=== PATIENT | female | born 1995 | race Caucasian/White ===

== ENCOUNTER 2017-04-21 17:44 | Emergency (ER) | payer OTHER ==
[~2017-04-21] VITALS: Wt 90.0 kg
[2017-04-21] MEDS ORDERED: KETOROLAC 60 MG INJ IM STA (18:52)
[2017-04-21 19:11] VITALS: PULSE 68; RESP 18
[2017-04-21] MEDS ORDERED: NICARDipine HCL 30 MG CAPSULE PO ONE (19:30)
--- NOTE | 2017-04-21 19:38 | RADRPT ---
PROCEDURE: Chest x-ray CLINICAL INDICATION: CHEST PAIN TECHNIQUE: Two views PA and lateral COMPARISON: none FINDINGS: The cardiomediastinal silhouette is normal in size. Pulmonary vasculature is within normal limits. Lung munson are clear, without focal consolidation or mass. There is no evidence of pleural effusion. There is no pneumothorax. Osseous structures appear unremarkable. IMPRESSION: 1. No evidence of acute cardiopulmonary disease. Unremarkable examination. RPTAT: HBST .Tank Willis MD, MD Date Time Electronically viewed and signed by .Tank Willis MD, on 04/21/2017 19:38 .T/
[2017-04-21 19:47] LABS: BASOPHILS % 0.4 % (0.0-2.0); EOSINOPHILS # 0.1 10^3/ul (0.0-0.5); EOSINOPHILS % 1.2 % (0.0-7.0); HEMATOCRIT 38.4 % (37.0-47.0); LYMPHOCYTES # 3.1 10^3/ul (0.8-2.9); MEAN CORPUSCULAR HEMOGLOBIN 30.6 pg (29.0-33.0); MEAN CORPUSCULAR HGB CONC 36.5 g/dl (32.0-37.0); MEAN PLATELET VOLUME 10.1 fl (7.4-10.4); MONOCYTE # 0.5 10^3/ul (0.3-0.9); MONOCYTES % 5.1 % (0.0-11.0); NEUTROPHIL # 5.6 10^3/ul (1.6-7.5); PLATELET COUNT 206 10^3/UL (140-415); RED BLOOD COUNT 4.57 10^6/ul (4.20-5.40); RED CELL DISTRIBUTION WIDTH 12.1 % (11.5-14.5); WHITE BLOOD COUNT 9.3 10^3/ul (4.8-10.8)
[2017-04-21 19:52] LABS: ADD UMIC YES; UR ASCORBIC ACID 40 mg/dL (NEGATIVE); UR BILIRUBIN (Dip) NEGATIVE (NEGATIVE); UR BLOOD (Dip) 1+ mg/dL (NEGATIVE); UR CLARITY CLEAR (CLEAR); UR COLOR YELLOW (YELLOW); UR GLUCOSE (Dip) NEGATIVE (NEGATIVE); UR KETONES (Dip) 1+ mg/dL (NEGATIVE); UR LEUKOCYTE ESTERASE (Dip) NEGATIVE Leu/ul (NEGATIVE); UR MUCUS FEW /HPF (NONE SEEN); UR NITRITE (Dip) NEGATIVE (NEGATIVE); UR RBC 24 /HPF (0-5); UR SPECIFIC GRAVITY (Dip) 1.019 (1.003-1.030); UR SQUAMOUS EPITHELIAL CELL FEW /HPF (FEW); UR TOTAL PROTEIN (Dip) 1+ mg/dl (NEGATIVE); UR UROBILINOGEN (Dip) NEGATIVE (NEGATIVE)
[2017-04-21 20:04] LABS: PROTIME 13.2 Sec (12.2-14.2)
[2017-04-21 20:05] LABS: PARTIAL THROMBOPLASTIN TIME 29.6 Sec (25.0-35.0)
[2017-04-21 20:07] LABS: ALANINE AMINOTRANSFERASE 53 IU/L (13-69); ALBUMIN/GLOBULIN RATIO 1.42; ALKALINE PHOSPHATASE 66 IU/L (42-121); ANION GAP 22 (8-16); ASPARTATE AMINO TRANSFERASE 32 IU/L (15-46); BILIRUBIN,INDIRECT 0.9 mg/dl (0-1.1); BILIRUBIN,TOTAL 0.9 mg/dl (0.2-1.3); BLOOD UREA NITROGEN 12 mg/dl (7-20); CALCIUM 9.7 mg/dl (8.4-10.2); CARBON DIOXIDE 27 mmol/L (21-31); CHLORIDE 101 mmol/L (97-110); CREATININE 0.61 mg/dl (0.44-1.00); D-DIMER 295.58 ng/ml (<460); GLUCOSE 90 mg/dl (70-220); POTASSIUM 3.5 mmol/L (3.5-5.1); SODIUM 146 mmol/L (135-144); TOTAL PROTEIN 8.5 g/dl (6.1-8.1)
[2017-04-21 20:18] LABS: B-TYPE NATRIURETIC PEPTIDE 28 PG/ML (0-125)
[2017-04-21 20:24] LABS: TROPONIN-I < 0.012 ng/ml (0.00-0.12)
--- NOTE | 2017-04-21 20:34 | ERD ---
ER Documentation Chief Complaint Date/Time DATE: 04/21/17 Chief Complaint Chest pain, Back pain HPI The patient is a 21-year-old female who presents to the Emergency Department with complaint of chest pain. The patient reports that her symptoms began two days ago, with onset of central chest pain radiating to the upper back. She describes her pain as sharp in nature, radiating towards the trapezius and upper back. She admits to increased discomfort with movement of the extremities and upon taking deep breaths. The pain is improved while at rest, and upon sitting up/leaning forward rather than lying supine. The patient admits to recent illness, with cough and rhinorrhea approximately 2 weeks ago, which have since resolved. She denies any current cough or URI symptoms. Denies any orthopnea or paroxysmal nocturnal dyspnea. Denies any calf swelling, calf tenderness or lower extremity edema. Denies any trauma or injury to the chest or back. The patient denies any exacerbation of her symptoms with physical exertion, but admits to some exacerbation with range of motion of the upper extremities. Denies fevers, sweats, chills. Denies any hoarseness of change in phonation. Denies new rashes or vesicles to the affected area. Denies nausea, vomiting or change in appetite. Denies any change in symptoms with food. Denies recent travel or recent surgeries. Denies any OCP or exogenous estrogen use. Denies any history of malignancy or autoimmune disease. Denies any history of PE or DVTs. Patient also denies any long car rides, long flights, prolonged periods of immobilization, leg swelling, hemoptysis, recent pregnancies, current or prolonged bedrest. Of note, upon arrival to the ED, the patient's blood pressure was measured to be 244/128 (confirmed x 3). Patient notes that in the past she has been informed "once or twice" that her blood pressure was elevated. When inquired on the previous blood pressure values, patient notes that her most elevated previous blood pressure was "160" systolic. She notes that both of her parents have hypertension, and believes that to be the cause of her elevated blood pressure. Otherwise, she denies any previous diagnosis of hypertension, hyperlipidemia, diabetes mellitus. She denies any head trauma, headache, dizziness, weakness, illicit drug use, visual changes, altered mental status, confusion, focal neurologic symptoms. Denies any tobacco use. Denies any familial cardiac history, or history of [place] in parents, aunts, uncles, grandparents or siblings. Denies history of CHF, COPD, asthma, CAD. ROS All systems reviewed and are negative except as per history of present illness. Medications Home Meds Active Scripts Amlodipine Besylate* (Norvasc*) 10 Mg Tablet, 10 MG PO DAILY, #30 TAB Prov:PATTI GALO VERNON 04/21/17 Lisinopril* (Lisinopril*) 20 Mg Tablet, 20 MG PO DAILY, #30 TAB Prov:PATTI GALO VERNON 04/21/17 Naproxen* (Naprosyn*) 500 Mg Tablet, 500 MG PO BID Y for PAIN AND/OR INFLAMMATION, #30 TAB Prov:PATTI GALO VERNON 04/21/17 Allergies Allergies: Coded Allergies: No Known Allergy (Unverified , 01/19/15) PMhx/Soc History of Surgery: No Anesthesia Reaction: No Hx Neurological Disorder: No Hx Respiratory Disorders: No Hx Cardiac Disorders: Yes (HTN) Hx Psychiatric Problems: No Hx Miscellaneous Medical Probl: Yes () Hx Alcohol Use: No Hx Substance Use: No Hx Tobacco Use: No Smoking Status: Never smoker Physical Exam Vitals Vital Signs Date Time Temp Pulse Resp B/P Pulse Ox O2 Delivery O2 Flow Rate FiO2 04/21/17 20:38 177/101 04/21/17 19:11 68 18 220/122 98 Room Air 04/21/17 17:47 98.0 83 18 244/128 99 Physical Exam GENERAL: Well-developed, well-nourished, in no acute distress. Nontoxic. Well- appearing. HEENT: Head is normocephalic, atraumatic. No scleral pallor or icterus. Pupils equal, round and reactive to light. Conjunctiva pink. Moist mucous membranes. NECK: Supple. No masses, no tenderness, no lymphadenopathy. Trachea midline. No nuchal rigidity. Full range of motion. No distended neck veins. RESPIRATORY: Lungs are clear to auscultation bilaterally. No rales, rhonchi or wheezing. Equal breath sounds. Normal expiratory effort. No accessory muscle use. CARDIOVASCULAR: Regular rate and rhythm. S1 and S2 normal. No murmurs or gallops. No S3 or S4. No muffled heart sounds. Distal pulses are palpable, 2+ bilaterally. Capillary refill is less than 2 seconds. CHEST WALL: No flail chest. No deformity. No tenderness to palpation. No crepitus. No subcutaneous emphysema. GASTROINTESTINAL: Abdomen is soft, nontender, and nondistended. No guarding, no rebound tenderness. Normal bowel sounds. No ascites. FLANK: No CVA tenderness, no mass or swelling. BACK: No midline tenderness. No paraspinal tenderness. EXTREMITIES: No clubbing, cyanosis, or edema. Normal skin perfusion. Full range of motion of both the upper and lower extremities bilaterally. Muscle tone is normal. No focal swelling or erythema. No calf swelling or calf tenderness. Negative Bernardo's sign. No lower extremity edema. NEUROLOGIC: The patient is alert, awake, and oriented x 3. No focal neurologic deficits. Cranial nerves are grossly intact. Gait is observed and normal. There is no ataxia. Motor normal in all extremities. Sensation grossly intact. Speech is normal. INTEGUMENT: Skin is clean, dry and intact. No rashes, lesions or petechiae present. PSYCHIATRIC: Appropriate; Cooperative. Result Diagram: 04/21/17193904/21/171939 Results 24 hrs Laboratory Tests Test 04/21/17 19:40 White Blood Count 9.310^3/ul Red Blood Count 4.5710^6/ul Hemoglobin 14.0g/dl Hematocrit 38.4% Mean Corpuscular Volume 84.0fl Mean Corpuscular Hemoglobin 30.6pg Mean Corpuscular Hemoglobin Concent 36.5g/dl Red Cell Distribution Width 12.1% Platelet Count 95673^3/UL Mean Platelet Volume 10.1fl Neutrophils % 60.0% Lymphocytes % 33.0% Monocytes % 5.1% Eosinophils % 1.2% Basophils % 0.4% Nucleated Red Blood Cells % 0.0/100WBC Neutrophils # 5.610^3/ul Lymphocytes # 3.110^3/ul Monocytes # 0.510^3/ul Eosinophils # 0.110^3/ul Basophils # 0.010^3/ul Nucleated Red Blood Cells # 0.010^3/ul Prothrombin Time 13.2Sec Prothrombin Time Ratio 1.0 INR International Normalized Ratio 1.00 Activated Partial Thromboplast Time 29.6Sec D-Dimer 295.58ng/ml D-Dimer Comment Urine Color YELLOW Urine Clarity CLEAR Urine pH 5.0 Urine Specific [place] 1.019 Urine Ketones 1+mg/dL Urine Nitrite NEGATIVEmg/dL Urine Bilirubin NEGATIVEmg/dL Urine Urobilinogen NEGATIVEmg/dL Urine Leukocyte Esterase NEGATIVELeu/ul Urine Microscopic RBC 24/HPF Urine Microscopic WBC 3/HPF Urine Squamous Epithelial Cells FEW/HPF Urine Mucus FEW/HPF Urine Hemoglobin 1+mg/dL Urine Glucose NEGATIVEmg/dL Urine Total Protein 1+mg/dl Sodium Level 146mmol/L Potassium Level 3.5mmol/L Chloride Level 101mmol/L Carbon Dioxide Level 27mmol/L Anion Gap 22 Blood Urea Nitrogen 12mg/dl Creatinine 0.61mg/dl Glucose Level 90mg/dl Calcium Level 9.7mg/dl Total Bilirubin 0.9mg/dl Direct Bilirubin 0.00mg/dl Indirect Bilirubin 0.9mg/dl Aspartate Amino Transf (AST/SGOT) 32IU/L Alanine Aminotransferase (ALT/SGPT) 53IU/L Alkaline Phosphatase 66IU/L Troponin I < 0.012ng/ml B-Type Natriuretic Peptide 28PG/ML Total Protein 8.5g/dl Albumin 5.0g/dl Globulin 3.50g/dl Albumin/Globulin Ratio 1.42 Lipase 75U/L Serum HCG, Qualitative NEGATIVE Current Medications Medications (Trade) Dose Ordered Sig/Saira Route PRN Reason Start Time Stop Time Status Last Admin Dose Admin Ketorolac Tromethamine (Toradol) 60 mg ONCE STAT IM 04/21/17 18:52 04/21/17 18:55 DC 04/21/17 19:39 Nicardipine HCl (Cardene) 30 mg ONCE ONCE PO 04/21/17 19:30 04/21/17 19:31 DC 04/21/17 19:43 Procedures/MDM DIAGNOSTIC TESTS AND INTERPRETATION: PROCEDURE: Chest x-ray CLINICAL INDICATION: CHEST PAIN TECHNIQUE: Two views PA and lateral COMPARISON: none FINDINGS: The cardiomediastinal silhouette is normal in size. Pulmonary vasculature is within normal limits. Lung munson are clear, without focal consolidation or mass. There is no evidence of pleural effusion. There is no pneumothorax. Osseous structures appear unremarkable. IMPRESSION: 1. No evidence of acute cardiopulmonary disease. Unremarkable examination. .Tank Willis MD, Date Time Electronically viewed and signed by .Tank Willis MD, MD on 04/21/2017 19:38 EKG Reviewed and interpreted by: Dr. Schuler EKG Interpretation: Normal sinus rhythm. Rate [address]-segment elevations. No ectopy. Normal axis. EMERGENCY DEPARTMENT COURSE: Laboratory work, EKG and chest x-ray performed. Patient's blood pressure was elevated (>120/80) but she appears to be stable without evidence of end-organ damage or hypertensive emergency. The patient was counseled about the risks of hypertension and strongly urged to pursue outpatient monitoring and therapy within a week (or as soon as possible) with their primary care physician. Patient was given a dose of Cardene in the ED with improvement of initial blood pressure. Risks of uncontrolled elevated blood pressure discussed at length. The patient's case was reviewed and discussed with Dr. Schuler, ED attending/supervising physician, who reviewed patient's results and agrees with administration of the Nicardipine PO. Additionally, he recommends that the patient be discharged home with a prescription for Lisinopril 20 mg and Norvasc 10 mg to be taken daily until she follows up with her primary medical provider this week. The patient gave informed consent to the new medications. She was fully informed by myself on the adverse effects and adverse drug interactions in order to provide adequate safeguards to prevent possible adverse reactions to medications. Patient was also given Toradol upon arrival to the ED. On reevaluation, she reports improvement in symptoms. HEART Score: 2 points. Risk of MACE of 0.9 - 1.7% MEDICAL DECISION MAKING: This is a 21-year-old female presenting to the Emergency Department with chest pain radiating to the back. The patient had no significant abnormalities noted on physical examination. Vital signs revealed severe new-onset hypertension, with blood pressure of 244/128. Patient has been informed previously of "elevated blood pressure," but never formally diagnosed or treated. Otherwise, she was afebrile with no tachycardia, no tachypnea and a normal O2 saturation on room air. The differential diagnosis includes, but is not limited to, gastritis, trauma, pneumothorax, dysrhythmia, hypertrophic cardiomyopathy, pericarditis, Prinzmetal's angina, myocardial infarction, mitral valve prolapse, peptic ulcer disease, pancreatitis, cholecystitis, empyema, pneumonia, GERD, pleurisy, costochondritis, endocarditis, musculoskeletal pain, acute coronary syndrome, pulmonary embolism, aortic dissection, CHF, malignant hypertension, hypertensive crisis, esophageal perforation, myocarditis, tamponade. The clinical presentation does not suggest an acute coronary syndrome or acute pulmonary embolism. Labs: CBC reveals no leukocytosis. Hemoglobin and hematocrit are stable, no significant anemia noted. Electrolytes within normal limits, no indication for electrolyte replacement. BUN and creatinine normal, no evidence of pre-renal azotemia or acute kidney injury. Troponin < 0.012, greater than 6 hours after chest pain began making NSTEMI unlikely. Unstable angina unlikely on history/physical exam. Pulmonary embolism unlikely given risk factor profile and very atypical presentation. D-dimer negative. Aortic dissection unlikely given equal pulses and no tearing pain. Esophageal perforation unlikely: no retching or recent instrumentation. No evidence of pneumothorax on CXR, and patient has normal O2 saturation of 99%, and no signs of respiratory distress. After rest and administration of Toradol, patient's symptoms greatly improved. Cardene was administered in the ED, and patient's blood pressure improved. Upon review and interpretation of the patient's presentation and overall ER course, I believe patient's symptoms are most consistent with chest pain and uncontrolled hypertension. Question possible underlying pericarditis, though no findings on EKG, no friction rub. At this time, the patient is in stable condition with no current evidence of end-organ damage and therefore she can be discharged home with prescriptions for Naproxen, Lisinopril and Norvasc and given strict return precautions or signs of deteriorating or worsening condition. She is strongly advised to follow up with his primary care provider within 1-2 days for reevaluation and further management, or return to the ER sooner if symptoms worsen. If symptoms return or worsen, patient should also consider outpatient cardiology evaluation. I shared my medical decision making and plan with the patient at length and in great detail, and she verbally understands and agrees with the plan for further observation and care as an outpatient. At the time of discharge, all questions were answered. Departure Diagnosis: Primary Impression: Chest pain Chest pain type: unspecified Qualified Code: R07.9 - Chest pain, unspecified type Additional Impression: Uncontrolled hypertension Condition: Stable Patient Instructions: Chest Pain, Uncertain Cause Additional Instructions: Follow up with your primary medical provider in 1-2 days for reevaluation and further management. If symptoms persist or worsen, please follow up with cardiology as well. Return to the ED sooner for any new or worsening symptoms. PATTI GALO PA-C Apr 21, 2017 20:34
[2017-04-21] MEDS ORDERED: NAPR-260 PO (20:37)
[2017-04-21 20:38] VITALS: BP 177/101
[2017-04-21] MEDS ORDERED: AMLO-218 PO (20:46)
[2017-04-21] MEDS ORDERED: LISI20TA11 PO (20:46)
== END 2017-04-21 20:59 | disposition home or self-care (01) ==
LOC: FTE 17:44
DX: R07.9 Chest pain, unspecified (principal); I10 Essential (primary) hypertension; R06.02 Shortness of breath
CPT/HCPCS: 36415; 71020; 80053; 81001; 83690; 83880; 84484; 84703; 85025; 85378; 85610; 85730; 96372; J1885; Z7502; Z7610; 93005

== ENCOUNTER 2018-09-06 04:13 | Emergency (ER) | END 2018-09-06 06:18 | disposition home or self-care (01) ==

== ENCOUNTER 2019-03-28 11:42 | Emergency (ER) | payer OTHER ==
[~2019-03-28] VITALS: Ht 175.3 cm; Wt 103.5 kg
[~2019-03-28 11:42] MED LIST: ACET500C5 PO; AMLO-147 PO; AZIT250T PO; LISI-471 PO; RANI150T35 PO
[2019-03-28 12:01] VITALS: Ht 175.3 cm; Wt 103.5 kg
[2019-03-28] MEDS ORDERED: KETOROLAC 30 MG INJ IM STA (12:14)
--- NOTE | 2019-03-28 12:25 | ERD ---
ER Documentation Chief Complaint Chief Complaint back pain started today HPI Patient is a 23 years old female with PMHx of HTN presenting to the clinic for left upper mid back pain that started earlier today. Patient states that the pain came about suddenly and rates it 8/10. Patient denies using any OTC medication and denies fever, chills, night sweats, nausea, emesis, abdominal pain, diarrhea, urinary symptoms, or flank pain. ROS All systems reviewed and are negative except as per history of present illness. Medications Home Meds Active Scripts Ibuprofen* (Motrin*) 800 Mg Tab, 800 MG PO Q6, #30 TAB Prov:CARLEEN LOPEZ PA-C 03/28/19 Methocarbamol* (Robaxin*) 500 Mg Tab, 500 MG PO Q8 for 7 Days, #21 TAB Prov:CARLEEN LOPEZ PA-C 03/28/19 Acetaminophen* (Tylophen*) 500 Mg Capsule, 2 CAP PO Q8H PRN for PAIN AND OR ELEVATED TEMP, #20 CAP Prov:TADEO WILDE MD 09/06/18 Ranitidine Hcl* (Zantac*) 150 Mg Tablet, 150 MG PO DAILY PRN for SORE THROAT, #30 TAB Prov:TADEO WILDE MD 09/06/18 Azithromycin* (Zithromax*) 250 Mg Tablet, 250 MG PO .ZPACK DIRECTED, #6 TAB TAKE 500 MG (2 TABS) THE FIRST DAY THEN 250 MG (1 TAB) DAYS 2-5 Prov:TADEO WILDE MD 09/06/18 Lisinopril* (Lisinopril*) 20 Mg Tablet, 20 MG PO DAILY, #30 TAB Prov:TADEO WILDE MD 09/06/18 Amlodipine Besylate* (Amlodipine Besylate*) 10 Mg Tablet, 10 MG PO DAILY, #30 TAB Prov:TADEO WILDE MD 09/06/18 Allergies Allergies: Coded Allergies: No Known Allergy (Unverified , 03/28/19) PMhx/Soc History of Surgery: Yes (C/S) Anesthesia Reaction: No Hx Neurological Disorder: No Hx Respiratory Disorders: No Hx Cardiac Disorders: Yes (HTN) Hx Psychiatric Problems: No Hx Miscellaneous Medical Probl: Yes () Hx Alcohol Use: No Hx Substance Use: No Hx Tobacco Use: No Smoking Status: Never smoker FmHx Family History: No diabetes, No coronary disease, No other Physical Exam Vitals Vital Signs Date Temp Pulse Resp B/P (MAP) Pulse Ox O2 O2 Flow FiO2 Time Delivery Rate 03/28/19 98.3 91 24 184/116 98 12:01 (138) Physical Exam Const: No acute distress Head: Atraumatic Eyes: Normal Conjunctiva. PERRLA. No nystagmus. Resp: Clear to auscultation bilaterally Cardio: Regular rate and rhythm, no murmurs Abd: Soft, non tender, non distended. Normal bowel sounds Skin: No petechiae or rashes Back: No midline or flank tenderness. Negative CVAT Ext: No cyanosis, or edema Neur: Awake and alert Psych: Normal Mood and Affect Result Diagram: 03/28/19 1231 03/28/19 1231 Results 24 hrs Laboratory Tests Test 03/28/19 12:22 03/28/19 12:28 03/28/19 12:31 Urine Color YELLOW Urine Clarity CLEAR Urine pH 6.0 Urine Specific [place] 1.014 Urine Ketones NEGATIVE mg/dL Urine Nitrite NEGATIVE mg/dL Urine Bilirubin NEGATIVE mg/dL Urine Urobilinogen NEGATIVE mg/dL Urine Leukocyte Esterase NEGATIVE Jona/ul Urine Microscopic RBC 3 /HPF Urine Microscopic WBC 0 /HPF Urine Squamous Epithelial Cells FEW /HPF Urine Hemoglobin 1+ mg/dL Urine Glucose NEGATIVE mg/dL Urine Total Protein 1+ mg/dl POC Beta HCG, Qualitative NEGATIVE White Blood Count 6.0 10^3/ul Red Blood Count 5.18 10^6/ul Hemoglobin 12.4 g/dl Hematocrit 38.5 % Mean Corpuscular Volume 74.3 fl Mean Corpuscular Hemoglobin 23.9 pg Mean Corpuscular 32.2 g/dl Hemoglobin Concent Red Cell Distribution Width 15.1 % Platelet Count 227 10^3/UL Mean Platelet Volume 10.9 fl Immature Granulocytes % 0.300 % Neutrophils % 61.5 % Lymphocytes % 31.7 % Monocytes % 5.0 % Eosinophils % 0.8 % Basophils % 0.7 % Nucleated Red Blood Cells % 0.0 /100WBC Immature Granulocytes # 0.020 10^3/ul Neutrophils # 3.7 10^3/ul Lymphocytes # 1.9 10^3/ul Monocytes # 0.3 10^3/ul Eosinophils # 0.1 10^3/ul Basophils # 0.0 10^3/ul Nucleated Red Blood Cells # 0.0 10^3/ul Sodium Level 141 mmol/L Potassium Level 4.0 mmol/L Chloride Level 107 mmol/L Carbon Dioxide Level 22 mmol/L Anion Gap 12 Blood Urea Nitrogen 12 mg/dl Creatinine 0.54 mg/dl Est Glomerular Filtrat > 60 mL/min Rate mL/min Glucose Level 97 mg/dl Calcium Level 9.1 mg/dl Total Bilirubin 0.6 mg/dl Direct Bilirubin 0.00 mg/dl Indirect Bilirubin 0.6 mg/dl Aspartate Amino 16 IU/L Transf (AST/SGOT) Alanine 18 IU/L Aminotransferase (ALT/SGPT) Alkaline Phosphatase 53 IU/L Total Protein 8.5 g/dl Albumin 4.8 g/dl Globulin 3.70 g/dl Albumin/Globulin Ratio 1.29 Current Medications Medications Dose Sig/Saira Start Time Status Last (Trade) Ordered Route PRN Stop Time Admin Dose Reason Admin Ketorolac 30 mg ONCE STAT 03/28/19 DC 03/28/19 Tromethamine IM 12:14 12:32 (Toradol) 03/28/19 12:17 Procedures/MDM Patient was seen and evaluated for nontraumatic left upper back pain. CBC,CMP, Urinalysis are unremarkable. Urine is negative. No current indication for renal ultrasound. Patient reports significant improvement with Toradol IM. Patient presents with asymptomatic elevated BP most likely due to stress; No tr eatment required. F/U with PCP. Departure Diagnosis: Primary Impression: Back pain Back pain location: thoracic back pain Chronicity: acute Back pain laterality: left Qualified Codes: M54.6 - Pain in thoracic spine Condition: Stable Patient Instructions: Thoracic Strain Referrals: [facility] Additional Instructions: Patient advised to return to the ED immediately for new or worsening symptoms. Patient advised to follow up with primary care provider in the next 24-48 hours. Patient verbalized understanding and agrees with treatment plan and course of action. If patient has no primary care they may follow up with [facility] [address] [place] [id number] or [facility] [address] [place] [address] or [facility] [address] [place] [address] CARLEEN LOPEZ PA-C Mar 28, 2019 12:25
[2019-03-28] MEDS ORDERED: METH500T PO (13:20)
[2019-03-28] MEDS ORDERED: IBUP800T48 PO (13:20)
[2019-03-28 13:45] VITALS: BP 165/98; PULSE 73; RESP 18
== END 2019-03-28 13:47 | disposition home or self-care (01) ==
LOC: FTE 11:42
DX: M54.6 Pain in thoracic spine (principal); I10 Essential (primary) hypertension
CPT/HCPCS: 80053; 81001; 81025; 85025; 96372; J1885; Z7502